=== PATIENT | male | born 1960 | race Caucasian/White ===

== ENCOUNTER 2016-08-16 08:50 | Emergency (ER) | payer OTHER ==
--- NOTE | 2016-08-16 10:28 | EDDOCDS ---
Physician Documentation [facility] Name: Calvin Barone Age: 55 yrs Sex: Male : 1960 Arrival Date: 08/16/2016 Time: 08:50 Bed I4 / M4 Private MD: Disposition: 08/16/16 10:06 Discharged to Home/Self Care. Impression: Acute frontal sinusitis. - Condition is Stable. - Discharge Instructions: Sinus Headache. - Prescriptions for Augmentin 875- 125 mg Oral Tablet - take 1 tablet by ORAL route every 12 hours for 10 days; 20 tablet. - Medication Reconciliation form. - Follow up: Private Physician; When: Call to arrange an appointment; Reason: Wound/Symptom Recheck, Recheck today's complaints, Worsening of conditions, Continuance of care. - Problem is an ongoing problem. - Symptoms are unchanged. - Notes: Please use your nasal spray as well. Historical: - Allergies: no known allergies; - Home Meds: 1. glipizide 10 mg Oral tab once daily 2. lisinopril 10 mg Oral tab once daily 3. metformin 1,000 mg Oral tab 2 times per day - PMHx: Diabetes - NIDDM: controlled; Hypertension; Hypothyroidism; - PSHx: Hernia repair; - Social history: Smoking status: Patient uses tobacco products, light tobacco smoker. No barriers to communication noted, The patient speaks fluent Chinese. - Family history: Not pertinent. - : The pt / caregiver states he / she is not on anticoagulants. Home medication list is obtained from [email or web address] import data. - Exposure Risk Screening:: None identified. Vital Signs: 08/16 09:42 BP 123 / 80; Pulse 83; Resp 20; Temp 98.1; Pulse Ox 98% ; Weight 104.33 kg / 230.01 jlf lbs; Height 5 ft. 11 in. (180.34 cm); Pain 0/10; 09:42 Body Mass Index 32.08 (104.33 kg, 180.34 cm) [facility] MDM: 10:26 Financial registration complete. mm15 Signatures: Nery Simpson RN RN Tiffanie Torres mm15 Ignacio Qiu PA-C PA-C cc10 MTDD
--- NOTE | 2016-08-16 10:28 | EDDOCDS ---
Nurse's Notes [facility] Name: Calvin Barone Age: 55 yrs Sex: Male : 1960 Arrival Date: 08/16/2016 Time: 08:50 Bed I4 / M4 Private MD: Diagnosis: Acute frontal sinusitis Presentation: 08/16 09:58 Presenting complaint: Patient states: Pt presents with c/o sore throat runny nose sinus dls congestion x 4-5 days. Adult Sepsis Screening: The patient does not have new or worsening altered mentation. Patient's respiratory rate is less than 22. Systolic blood pressure is greater than 100. Patient has a qSOFA score of 0- Negative Sepsis Screen. Suicide/Homicide risk assessment- the patient denies having any suicidal and/or homicidal ideations and does not present with any other emotional, behavioral or mental health complaints. Status: Patient is not a direct service provider or dependent. Transition of care: patient was not received from another setting of care. 09:58 Acuity: CYN Level 4 dls 09:58 Method Of Arrival: Walkin/Carried/Asstd dls Triage Assessment: 10:01 General: Appears in no apparent distress, well developed, Behavior is cooperative. dls Pain: Pain currently is 3 out of 10 on a pain scale. HIV screening NA for this visit Offered previously. 10:27 EENT: No deficits noted. dls Historical: - Allergies: no known allergies; - Home Meds: 1. glipizide 10 mg Oral tab once daily 2. lisinopril 10 mg Oral tab once daily 3. metformin 1,000 mg Oral tab 2 times per day - PMHx: Diabetes - NIDDM: controlled; Hypertension; Hypothyroidism; - PSHx: Hernia repair; - Social history: Smoking status: Patient uses tobacco products, light tobacco smoker. No barriers to communication noted, The patient speaks fluent Egyptian. - Family history: Not pertinent. - : The pt / caregiver states he / she is not on anticoagulants. Home medication list is obtained from [employer] import data. - Exposure Risk Screening:: None identified. Screenin:24 Screening information is obtained from the patient. Primary language is Egyptian. Fall dls risk: No risks identified. Assistance ADL's: requires no assistance with activities of daily living. Abuse/DV Screen: The patient / caregiver reports he/she is: not in a situation that causes fear, pain or injury. Nutritional screening: No deficits noted. Advance Directives: Currently, there is no health care proxy. There is no active DNR order. There is no living will. There is no Power of Casino Manager. Advance directive information has not previously been placed in an [facility] medical record. home support is adequate. Assessment: 10:24 General: Appears in no apparent distress, well developed, well nourished, Behavior is dls cooperative. Awake, alert, oriented. Skin warm and dry. Moves all extremities. Bilateral breath sounds clear. Respirations unlabored. Abdomen soft, non-tender. No apparent distress. The patient / caregiver is instructed regarding the plan of care and ED course. Vital Signs: 09:42 BP 123 / 80; Pulse 83; Resp 20; Temp 98.1; Pulse Ox 98% ; Weight 104.33 kg; Height 5 [facility] ft. 11 in. (180.34 cm); Pain 0/10; 09:42 Body Mass Index 32.08 (104.33 kg, 180.34 cm) [facility] ED Course: 08:51 Patient visited by Mynor Antunez. jp5 08:51 Patient moved to Waiting jp5 09:13 Patient moved to D1 kmg1 09:22 Patient moved to I4 / M4 dls 09:41 Patient visited by Huong Haley PCA. jl 09:42 Patient visited by Huong Haley PCA. jl 09:57 Ignacio Qiu [facility]-C [facility] cc10 09:57 Keyana Mauro MD is Attending Physician. cc10 10:00 Triage Initiated dls 10:01 Patient visited by Ignacio Qiu PA-C. cc10 10:01 Patient visited by Ignacio Qiu PA-C. cc10 10:24 Patient has correct armband on for positive identification. Bed in low position. Call dls light in reach. 10:26 No IV's were initiated during this patient's visit. No procedures done that require dls assistance. Order Results: There are currently no results for this order. Outcome: 10:06 Discharge ordered by Provider. cc10 10:24 The following High Risk Discharge criteria are identified: None. Discharged to home dls ambulatory, with significant other. Condition: stable. Discharge instructions given to patient, Instructed on discharge instructions, follow up and referral plans. medication usage, Demonstrated understanding of instructions, medications, Pt was receptive of discharge instructions/ teaching. Prescriptions given X 1. No special radiology studies were completed. 10:26 Discharge Assessment: Patient awake, alert and oriented x 3. No cognitive and/or dls functional deficits noted. Patient verbalized understanding of disposition instructions. patient administered narcotics - no. Property sent home with patient. 10:27 Patient left the ED. dls Signatures: Violeta Del Castillo, RN RN km Nery Simpson RN RN dls Huong Haley, DAYANNA FERRULER Ignacio Rivas, PA-C PA-C cc10 Mynor Antunez jp5 MTDD
--- NOTE | 2016-08-18 11:28 | EDDOCDS ---
Physician Documentation [facility] Name: Calvin Barone Age: 55 yrs Sex: Male : 1960 Arrival Date: 08/16/2016 Time: 08:50 Bed I4 / M4 Private MD: Disposition: 08/16/16 10:06 Discharged to Home/Self Care. Impression: Acute frontal sinusitis. - Condition is Stable. - Discharge Instructions: Sinus Headache. - Prescriptions for Augmentin 875- 125 mg Oral Tablet - take 1 tablet by ORAL route every 12 hours for 10 days; 20 tablet. - Medication Reconciliation form. - Follow up: Private Physician; When: Call to arrange an appointment; Reason: Wound/Symptom Recheck, Recheck today's complaints, Worsening of conditions, Continuance of care. - Problem is an ongoing problem. - Symptoms are unchanged. - Notes: Please use your nasal spray as well. Historical: - Allergies: no known allergies; - Home Meds: 1. glipizide 10 mg Oral tab once daily 2. lisinopril 10 mg Oral tab once daily 3. metformin 1,000 mg Oral tab 2 times per day - PMHx: Diabetes - NIDDM: controlled; Hypertension; Hypothyroidism; - PSHx: Hernia repair; - Social history: Smoking status: Patient uses tobacco products, light tobacco smoker. No barriers to communication noted, The patient speaks fluent Togolese. - Family history: Not pertinent. - : The pt / caregiver states he / she is not on anticoagulants. Home medication list is obtained from [employer] import data. - Exposure Risk Screening:: None identified. Vital Signs: 08/16 09:42 BP 123 / 80; Pulse 83; Resp 20; Temp 98.1; Pulse Ox 98% ; Weight 104.33 kg / 230.01 jlf lbs; Height 5 ft. 11 in. (180.34 cm); Pain 0/10; 09:42 Body Mass Index 32.08 (104.33 kg, 180.34 cm) [facility] MDM: 10:26 Financial registration complete. mm15 10:28 [facility] Payment Agreement was scanned into [employer] and attached to record. mm15 20:15 T-Sheet-- Draft Copy was scanned into [employer] and attached to record. klr Signatures: Nery Simpson RN RN Tiffanie Torres mm15 Ignacio Qiu PA-C PA-C cc10 Rosalie Mixon The chart was reviewed and I authenticate all verbal orders and agree with the evaluation and treatment provided.Attachments: 10:28 [facility] Payment Agreement mm15 20:15 T-Sheet-- Draft Copy klr Chart Complete MTDD
--- NOTE | 2016-08-18 11:28 | EDDOCDS ---
Nurse's Notes [facility] Name: Calvin Barone Age: 55 yrs Sex: Male : 1960 Arrival Date: 08/16/2016 Time: 08:50 Bed I4 / M4 Private MD: Diagnosis: Acute frontal sinusitis Presentation: 08/16 09:58 Presenting complaint: Patient states: Pt presents with c/o sore throat runny nose sinus dls congestion x 4-5 days. Adult Sepsis Screening: The patient does not have new or worsening altered mentation. Patient's respiratory rate is less than 22. Systolic blood pressure is greater than 100. Patient has a qSOFA score of 0- Negative Sepsis Screen. Suicide/Homicide risk assessment- the patient denies having any suicidal and/or homicidal ideations and does not present with any other emotional, behavioral or mental health complaints. Status: Patient is not a termite control servicer or dependent. Transition of care: patient was not received from another setting of care. 09:58 Acuity: CYN Level 4 dls 09:58 Method Of Arrival: Walkin/Carried/Asstd dls Triage Assessment: 10:01 General: Appears in no apparent distress, well developed, Behavior is cooperative. dls Pain: Pain currently is 3 out of 10 on a pain scale. HIV screening NA for this visit Offered previously. 10:27 EENT: No deficits noted. dls Historical: - Allergies: no known allergies; - Home Meds: 1. glipizide 10 mg Oral tab once daily 2. lisinopril 10 mg Oral tab once daily 3. metformin 1,000 mg Oral tab 2 times per day - PMHx: Diabetes - NIDDM: controlled; Hypertension; Hypothyroidism; - PSHx: Hernia repair; - Social history: Smoking status: Patient uses tobacco products, light tobacco smoker. No barriers to communication noted, The patient speaks fluent Spanish. - Family history: Not pertinent. - : The pt / caregiver states he / she is not on anticoagulants. Home medication list is obtained from [employer] import data. - Exposure Risk Screening:: None identified. Screenin:24 Screening information is obtained from the patient. Primary language is Spanish. Fall dls risk: No risks identified. Assistance ADL's: requires no assistance with activities of daily living. Abuse/DV Screen: The patient / caregiver reports he/she is: not in a situation that causes fear, pain or injury. Nutritional screening: No deficits noted. Advance Directives: Currently, there is no health care proxy. There is no active DNR order. There is no living will. There is no Power of Dairy Associate. Advance directive information has not previously been placed in an [facility] medical record. home support is adequate. Assessment: 10:24 General: Appears in no apparent distress, well developed, well nourished, Behavior is dls cooperative. Awake, alert, oriented. Skin warm and dry. Moves all extremities. Bilateral breath sounds clear. Respirations unlabored. Abdomen soft, non-tender. No apparent distress. The patient / caregiver is instructed regarding the plan of care and ED course. Vital Signs: 09:42 BP 123 / 80; Pulse 83; Resp 20; Temp 98.1; Pulse Ox 98% ; Weight 104.33 kg; Height 5 [facility] ft. 11 in. (180.34 cm); Pain 0/10; 09:42 Body Mass Index 32.08 (104.33 kg, 180.34 cm) [facility] ED Course: 08:51 Patient visited by Mynor Antunez. jp5 08:51 Patient moved to Waiting jp5 09:13 Patient moved to D1 kmg1 09:22 Patient moved to I4 / M4 dls 09:41 Patient visited by Huong Haley PCA. jl 09:42 Patient visited by Huong Haley PCA. jlf 09:57 Ignacio [facility]C [facility] cc10 09:57 Keyana Mauro MD is Attending Physician. cc10 10:00 Triage Initiated dls 10:01 Patient visited by Ignacio Qiu PA-C. cc10 10:01 Patient visited by Ignacio Qiu PA-C. cc10 10:24 Patient has correct armband on for positive identification. Bed in low position. Call dls light in reach. 10:26 No IV's were initiated during this patient's visit. No procedures done that require dls assistance. 10:28 [facility] Payment Agreement was scanned into [employer] and attached to record. mm15 20:15 T-Sheet-- Draft Copy was scanned into [employer] and attached to record. klr Order Results: There are currently no results for this order. Outcome: 10:06 Discharge ordered by Provider. cc10 10:24 The following High Risk Discharge criteria are identified: None. Discharged to home dls ambulatory, with significant other. Condition: stable. Discharge instructions given to patient, Instructed on discharge instructions, follow up and referral plans. medication usage, Demonstrated understanding of instructions, medications, Pt was receptive of discharge instructions/ teaching. Prescriptions given X 1. No special radiology studies were completed. 10:26 Discharge Assessment: Patient awake, alert and oriented x 3. No cognitive and/or dls functional deficits noted. Patient verbalized understanding of disposition instructions. patient administered narcotics - no. Property sent home with patient. 10:27 Patient left the ED. dls Signatures: Violeta Del Castillo, RN RN kmg1 Nery Simpson RN RN dls Tiffanie Portillo mm15 Huong Haley, DAYANNA METHANE GAS COLLECTION SYSTEM OPERATOR alejandrof Ignacio Qiu, PA-C PANate cc10 Mynor Antunez jp5 Rosalie Mixon Chart Complete MTDUmer
--- NOTE | 2016-08-18 11:28 | EDDOCDS ---
Physician Documentation [facility] Name: Calvin Barone Age: 55 yrs Sex: Male : 1960 Arrival Date: 08/16/2016 Time: 08:50 Bed I4 / M4 Private MD: Disposition: 08/16/16 10:06 Discharged to Home/Self Care. Impression: Acute frontal sinusitis. - Condition is Stable. - Discharge Instructions: Sinus Headache. - Prescriptions for Augmentin 875- 125 mg Oral Tablet - take 1 tablet by ORAL route every 12 hours for 10 days; 20 tablet. - Medication Reconciliation form. - Follow up: Private Physician; When: Call to arrange an appointment; Reason: Wound/Symptom Recheck, Recheck today's complaints, Worsening of conditions, Continuance of care. - Problem is an ongoing problem. - Symptoms are unchanged. - Notes: Please use your nasal spray as well. Historical: - Allergies: no known allergies; - Home Meds: 1. glipizide 10 mg Oral tab once daily 2. lisinopril 10 mg Oral tab once daily 3. metformin 1,000 mg Oral tab 2 times per day - PMHx: Diabetes - NIDDM: controlled; Hypertension; Hypothyroidism; - PSHx: Hernia repair; - Social history: Smoking status: Patient uses tobacco products, light tobacco smoker. No barriers to communication noted, The patient speaks fluent Peruvian. - Family history: Not pertinent. - : The pt / caregiver states he / she is not on anticoagulants. Home medication list is obtained from [employer] import data. - Exposure Risk Screening:: None identified. Vital Signs: 08/16 09:42 BP 123 / 80; Pulse 83; Resp 20; Temp 98.1; Pulse Ox 98% ; Weight 104.33 kg / 230.01 jlf lbs; Height 5 ft. 11 in. (180.34 cm); Pain 0/10; 09:42 Body Mass Index 32.08 (104.33 kg, 180.34 cm) [facility] MDM: 10:26 Financial registration complete. mm15 10:28 [facility] Payment Agreement was scanned into [employer] and attached to record. mm15 20:15 T-Sheet-- Draft Copy was scanned into [employer] and attached to record. klr Signatures: Nery Simpson RN RN Tiffanie Torres mm15 Ignacio Qiu PA-C PA-C cc10 Rosalie Mixon The chart was reviewed and I authenticate all verbal orders and agree with the evaluation and treatment provided.Attachments: 10:28 [facility] Payment Agreement mm15 20:15 T-Sheet-- Draft Copy klr Chart Complete MTDD
== END 2016-08-16 10:27 | disposition home or self-care (01) ==
LOC: M ED 08:50
DX: J01.90 Acute sinusitis, unspecified (principal); H92.09 Otalgia, unspecified ear; E11.9 Type 2 diabetes mellitus without complications; I10 Essential (primary) hypertension; E03.9 Hypothyroidism, unspecified; F17.210 Nicotine dependence, cigarettes, uncomplicated; Z79.899 Other long term (current) drug therapy; Z79.84 Long term (current) use of oral hypoglycemic drugs

== ENCOUNTER 2016-11-22 06:12 | Emergency (ER) | payer OTHER ==
[~2016-11-22] VITALS: Ht 180.3 cm; Wt 102.5 kg
[2016-11-22] MEDS ORDERED: ZOLO25TA PO (06:35)
[2016-11-22] MEDS ORDERED: METF-415 PO (06:36)
[2016-11-22] MEDS ORDERED: IPRATROPIUM 0.5MG/ALBUTEROL 2.5MG INH SOL UD 3ML (DUONEB)(J7620) NEB ONE (07:15)
[2016-11-22] MEDS ORDERED: predniSONE 20 MG TAB PO ONE ×3 (07:30→07:45)
[2016-11-22 08:24] VITALS: BP 138/78
[2016-11-22] MEDS ORDERED: PRED20TA PO (08:26)
[2016-11-22] MEDS ORDERED: CLAR1TAB2 PO (08:26)
[2016-11-22] MEDS ORDERED: AUGM875T27 PO (08:26)
[2016-11-22] MEDS ORDERED: ALBU17IN INH (08:26)
[2016-11-22] MEDS ORDERED: MUCI600T34 PO (08:26)
[2016-11-22] MEDS ORDERED: AUGMENTIN 875 MG TAB PO ONE (08:30)
--- NOTE | 2016-11-22 10:14 | REP ---
CHEST, TWO VIEWS: HISTORY: Cough. COMPARISON: 07/08/2016 FINDINGS: The superior mediastinal structures are midline. The cardiac silhouette is unremarkable in size, shape and position. The diaphragmatic surfaces of the lungs are regular and the costophrenic angles are clear. The pulmonary [place] are clear. The imaged osseous structures are intact. IMPRESSION: There is no acute cardiopulmonary disease. Signed by John Govea DO 11/22/2016 10:24 A
== END 2016-11-22 08:55 | disposition home or self-care (01) ==
LOC: M ED 07:22
DX: J01.90 Acute sinusitis, unspecified (principal); J20.9 Acute bronchitis, unspecified; E11.9 Type 2 diabetes mellitus without complications; Z79.84 Long term (current) use of oral hypoglycemic drugs; Z79.899 Other long term (current) drug therapy; F17.210 Nicotine dependence, cigarettes, uncomplicated

== ENCOUNTER → 2016-12-30 | Outpatient (REF) | payer OTHER ==
[~2016-12-30] MED LIST: ALBU17IN INH; AUGM875T27 PO; CLAR1TAB2 PO; METF-415 PO; MUCI600T34 PO; PRED20TA PO; ZOLO25TA PO
[2016-12-30 12:14] LABS: ALBUMIN 3.8 GM/DL (3.2-5.2); ALBUMIN/GLOBULIN RATIO 1.41 (1.00-1.93); ALKALINE PHOSPHATASE 60 U/L (45-117); ALT/SGPT 41 U/L (12-78); ANION GAP 6 MEQ/L (8-16); AST/SGOT 14 U/L (15-37); BILIRUBIN,TOTAL 0.7 MG/DL (0.2-1.0); BLOOD UREA NITROGEN 13 MG/DL (7-18); CALCIUM LEVEL 9.2 MG/DL (8.5-10.1); CARBON DIOXIDE LEVEL 28 MEQ/L (21-32); CHLORIDE LEVEL 106 MEQ/L (98-107); CREATININE FOR GFR 0.79 MG/DL (0.70-1.30); GLOMERULAR FILTRATION RATE > 60.0 (>56); GLUCOSE, FASTING 164 MG/DL (70-105); POTASSIUM SERUM 4.6 MEQ/L (3.5-5.1); SODIUM LEVEL 140 MEQ/L (136-145); TOTAL PROTEIN 6.5 GM/DL (6.4-8.2)
== END ==
LOC: M SFHCPLAZ 08:28
PROVIDERS: ATTEND Nurse Practitioner Family
DX: E11.8 Type 2 diabetes mellitus with unspecified complications (principal)

== ENCOUNTER → 2017-01-18 | Outpatient (CLI) | payer OTHER ==
[~2017-01-18] MED LIST changes: -AUGM875T27 PO; +AUGM875T28 PO; +BIAX500T13 PO; +CLAR5TAB7 PO; -MUCI600T34 PO; +MUCI600T37 PO
--- NOTE | 2017-01-18 13:45 | REP ---
Clinical: Follow up parenchymal abnormality. Comparison: 06/26/2016. Findings: The bilateral lung [place] are well-aerated, symmetric, and clear. No consolidation, significant nodule or mass lesion is appreciated. No pleural effusion/reaction or pneumothorax. Tracheobronchial tree is patent. The previously noted 5 mm ill-defined density is less conspicuous on current examination, inseparable from the minor fissure and represents small scar. No obvious adenopathy. Mediastinum demonstrates normal thoracic aorta and heart/pericardium. Surrounding musculoskeletal structures are intact. Impression: Previously identified 5 mm density is less apparent on current examination and likely represent small focal scar. Signed by Luis Newby MD 01/18/2017 01:37 P
== END ==
LOC: M RAD 12:22
PROVIDERS: ATTEND Nurse Practitioner Family
DX: R91.1 Solitary pulmonary nodule (principal)

== ENCOUNTER 2017-03-30 17:29 | Emergency (ER) | payer OTHER ==
[~2017-03-30] VITALS: Ht 180.3 cm; Wt 107.3 kg
[2017-03-30 17:29] VITALS: BP 135/64
[~2017-03-30 17:29] MED LIST changes: -BIAX500T13 PO; -CLAR5TAB7 PO
[2017-03-30] MEDS ORDERED: CLAR5TAB7 PO (20:14)
[2017-03-30] MEDS ORDERED: BIAX500T13 PO (20:14)
[2017-03-30] MEDS ORDERED: PSEUDOEPHEDRINE 30 MG TAB PO ONE (20:15)
[2017-03-30] MEDS ORDERED: ERYTHROMYCIN 250 MG TABLET PO SCH (20:15)
== END 2017-03-30 20:33 | disposition home or self-care (01) ==
LOC: M ED 17:29
DX: J32.9 Chronic sinusitis, unspecified (principal); J45.909 Unspecified asthma, uncomplicated; Z79.899 Other long term (current) drug therapy; F17.210 Nicotine dependence, cigarettes, uncomplicated

== ENCOUNTER → 2017-04-15 | Outpatient (REF) | payer OTHER ==
[~2017-04-15] MED LIST changes: +BIAX500T13 PO; +CLAR5TAB7 PO
[2017-04-15 16:23] LABS: ALBUMIN 3.8 GM/DL (3.2-5.2); ALBUMIN/GLOBULIN RATIO 1.41 (1.00-1.93); ALKALINE PHOSPHATASE 65 U/L (45-117); ALT/SGPT 26 U/L (12-78); ANION GAP 4 MEQ/L (8-16); AST/SGOT 11 U/L (15-37); BILIRUBIN,TOTAL 0.5 MG/DL (0.2-1.0); BLOOD UREA NITROGEN 16 MG/DL (7-18); CALCIUM LEVEL 9.3 MG/DL (8.5-10.1); CARBON DIOXIDE LEVEL 32 MEQ/L (21-32); CHLORIDE LEVEL 104 MEQ/L (98-107); GLOMERULAR FILTRATION RATE > 60.0 (>56); GLUCOSE, FASTING 155 MG/DL (70-105); POTASSIUM SERUM 4.2 MEQ/L (3.5-5.1); SODIUM LEVEL 140 MEQ/L (136-145); TOTAL PROTEIN 6.5 GM/DL (6.4-8.2)
== END ==
LOC: M SFHCPLAZ 13:20
PROVIDERS: ATTEND Nurse Practitioner Family
DX: E11.8 Type 2 diabetes mellitus with unspecified complications (principal)

== ENCOUNTER → 2017-07-15 | Outpatient (REF) | payer OTHER ==
[2017-07-15 11:25] LABS: ESTIMATED AVERAGE GLUCOSE 126 MG/DL (60-110)
[2017-07-15 11:36] LABS: ALBUMIN 4.4 GM/DL (3.2-5.2); ALBUMIN/GLOBULIN RATIO 1.63 (1.00-1.93); ALKALINE PHOSPHATASE 61 U/L (45-117); ALT/SGPT 40 U/L (12-78); ANION GAP 9 MEQ/L (8-16); AST/SGOT 20 U/L (7-37); BILIRUBIN,TOTAL 0.6 MG/DL (0.2-1.0); BLOOD UREA NITROGEN 16 MG/DL (7-18); CALCIUM LEVEL 8.6 MG/DL (8.5-10.1); CARBON DIOXIDE LEVEL 27 MEQ/L (21-32); CHLORIDE LEVEL 105 MEQ/L (98-107); CHOLESTEROL LEVEL 93 MG/DL (<200); CREATININE FOR GFR 0.82 MG/DL (0.70-1.30); GLOMERULAR FILTRATION RATE > 60.0 (>56); GLUCOSE, FASTING 74 MG/DL (70-105); POTASSIUM SERUM 4.6 MEQ/L (3.5-5.1); SODIUM LEVEL 141 MEQ/L (136-145); TOTAL PROTEIN 7.1 GM/DL (6.4-8.2); TRIGLYCERIDES LEVEL 126 MG/DL (<150)
== END ==
LOC: M SFHCPLAZ 09:03
DX: E11.8 Type 2 diabetes mellitus with unspecified complications (principal); E78.2 Mixed hyperlipidemia; Z12.5 Encounter for screening for malignant neoplasm of prostate; E55.9 Vitamin D deficiency, unspecified
CPT/HCPCS: 83036

== ENCOUNTER → 2018-01-11 | Outpatient (CLI) | payer OTHER ==
[2018-01-11 11:23] LABS: ESTIMATED AVERAGE GLUCOSE 128 MG/DL (60-110); HEMOGLOBIN A1c 6.1 %
[2018-01-11 11:30] LABS: ALBUMIN 4.1 GM/DL (3.2-5.2); ALBUMIN/GLOBULIN RATIO 1.32 (1.00-1.93); ALKALINE PHOSPHATASE 66 U/L (45-117); ALT/SGPT 46 U/L (12-78); ANION GAP 9 MEQ/L (8-16); AST/SGOT 27 U/L (7-37); BILIRUBIN,TOTAL 0.7 MG/DL (0.2-1.0); BLOOD UREA NITROGEN 14 MG/DL (7-18); CARBON DIOXIDE LEVEL 28 MEQ/L (21-32); CHLORIDE LEVEL 106 MEQ/L (98-107); CREATININE FOR GFR 0.85 MG/DL (0.70-1.30); GLOMERULAR FILTRATION RATE > 60.0 (>56); GLUCOSE, FASTING 143 MG/DL (70-100); POTASSIUM SERUM 4.8 MEQ/L (3.5-5.1); SODIUM LEVEL 143 MEQ/L (136-145); TOTAL PROTEIN 7.2 GM/DL (6.4-8.2)
[2018-01-11 11:38] LABS: MALB URINE SIEMENS 43.1 MG/L; MAU/CREAT RATIO 26.4 MCG/MG (0.0-30.0)
== END ==
LOC: M LAB 10:40
DX: E11.9 Type 2 diabetes mellitus without complications (principal); E55.9 Vitamin D deficiency, unspecified
CPT/HCPCS: 80053

== ENCOUNTER → 2018-02-17 | Outpatient (CLI) | payer OTHER | LOC: M RAD 12:00 | DX: Z12.2 Encounter for screening for malignant neoplasm of respiratory organs (principal); Z87.891 Personal history of nicotine dependence ==

== ENCOUNTER → 2018-02-25 | Outpatient (CLI) | payer OTHER | LOC: M RAD 12:06 | DX: Z12.2 Encounter for screening for malignant neoplasm of respiratory organs (principal); F17.290 Nicotine dependence, other tobacco product, uncomplicated; R91.1 Solitary pulmonary nodule | CPT/HCPCS: G0297 ==

== ENCOUNTER → 2018-08-29 | Outpatient (REF) | payer OTHER ==
[~2018-08-29] MED LIST changes: -BIAX500T13 PO; +BIAX500T14 PO
[2018-08-29 10:15] LABS: CREATININE, URINE 84.9 MG/DL; MALB URINE SIEMENS 11.2 MG/L; MAU/CREAT RATIO 13.1 MCG/MG (0.0-30.0)
[2018-08-29 10:23] LABS: HEMOGLOBIN A1c 6.5 %
[2018-08-29 10:39] LABS: ALBUMIN 4.2 GM/DL (3.2-5.2); ALT/SGPT 48 U/L (12-78); BILIRUBIN,TOTAL 0.4 MG/DL (0.2-1.0); BLOOD UREA NITROGEN 17 MG/DL (7-18); CALCIUM LEVEL 8.9 MG/DL (8.5-10.1); CARBON DIOXIDE LEVEL 28 MEQ/L (21-32); CHLORIDE LEVEL 107 MEQ/L (98-107); CHOLESTEROL LEVEL 103 MG/DL (<200); CHOLESTEROL RISK RATIO 2.575 (<5); CREATININE FOR GFR 0.79 MG/DL (0.70-1.30); GLOMERULAR FILTRATION RATE > 60.0 (>56); GLUCOSE, FASTING 97 MG/DL (70-100); HDL CHOLESTEROL 40 MG/DL (>40); LDL CHOLESTEROL 37 MG/DL (<100); MAGNESIUM LEVEL 1.9 MG/DL (1.8-2.4); NON-HDL-C 63 MG/DL; POTASSIUM SERUM 4.8 MEQ/L (3.5-5.1); SODIUM LEVEL 140 MEQ/L (136-145); TOTAL PROTEIN 6.6 GM/DL (6.4-8.2); TRIGLYCERIDES LEVEL 132 MG/DL (<150)
== END ==
LOC: M SFHCPLAZ 08:03
PROVIDERS: ATTEND Nurse Practitioner Family
DX: E11.9 Type 2 diabetes mellitus without complications (principal); E78.2 Mixed hyperlipidemia; E83.42 Hypomagnesemia; Z12.5 Encounter for screening for malignant neoplasm of prostate

== ENCOUNTER 2018-12-17 12:14 | Emergency (ER) | payer OTHER ==
[~2018-12-17] VITALS: Ht 180.3 cm; Wt 94.7 kg
[2018-12-17 12:14] VITALS: BP 117/67
[2018-12-17] MEDS ORDERED: ATOR80TA59 (12:22)
[2018-12-17] MEDS ORDERED: FLUTISP (12:22)
[2018-12-17] MEDS ORDERED: LISI-542 PO (12:22)
[2018-12-17] MEDS ORDERED: GLIP10TA6 (12:22)
[2018-12-17] MEDS ORDERED: ALOG25TA (12:22)
[2018-12-17] MEDS ORDERED: AUGM875T28 PO (13:00)
[2018-12-17] MEDS ORDERED: MUCI600T31 PO (13:00)
[2018-12-17] MEDS ORDERED: AUGMENTIN 875 MG TAB PO ONE (13:00)
== END 2018-12-17 13:10 | disposition home or self-care (01) ==
LOC: M ED 12:14
DX: J01.90 Acute sinusitis, unspecified (principal); J30.1 Allergic rhinitis due to pollen; I10 Essential (primary) hypertension; E11.9 Type 2 diabetes mellitus without complications; E78.00 Pure hypercholesterolemia, unspecified; F32.9 Major depressive disorder, single episode, unspecified; F17.200 Nicotine dependence, unspecified, uncomplicated; Z79.899 Other long term (current) drug therapy; Z79.84 Long term (current) use of oral hypoglycemic drugs

== ENCOUNTER → 2019-02-23 | Outpatient (REF) | payer OTHER ==
[~2019-02-23] MED LIST changes: +ALOG25TA; +ATOR80TA59; +FLUTISP; +GLIP10TA6; +LISI-542 PO; +MUCI600T31 PO
[2019-02-23 13:29] LABS: ALBUMIN 3.9 GM/DL (3.2-5.2); ALT/SGPT 50 U/L (12-78); BILIRUBIN,TOTAL 0.3 MG/DL (0.2-1.0); BLOOD UREA NITROGEN 14 MG/DL (7-18); CALCIUM LEVEL 9.3 MG/DL (8.5-10.1); CARBON DIOXIDE LEVEL 31 MEQ/L (21-32); CHLORIDE LEVEL 107 MEQ/L (98-107); CREATININE FOR GFR 0.75 MG/DL (0.70-1.30); GLOMERULAR FILTRATION RATE > 60.0 (>56); GLUCOSE, FASTING 79 MG/DL (70-100); MAGNESIUM LEVEL 1.8 MG/DL (1.8-2.4); POTASSIUM SERUM 4.3 MEQ/L (3.5-5.1); SODIUM LEVEL 142 MEQ/L (136-145); TOTAL PROTEIN 6.6 GM/DL (6.4-8.2)
[2019-02-23 14:12] LABS: HEMOGLOBIN A1c 6.3 %
== END ==
LOC: M SFHCPLAZ 09:10
PROVIDERS: ATTEND Nurse Practitioner Family
DX: E11.9 Type 2 diabetes mellitus without complications (principal); E83.42 Hypomagnesemia

== ENCOUNTER → 2019-03-27 | Outpatient (CLI) | payer OTHER ==
--- NOTE | 2019-03-28 07:36 | REP ---
CT chest without contrast: Low dose screening exam. Nicotine dependence. Comparison CT studies are from February 25, 2018, January 18, 2017, and July 16, 2016. Findings: There is a stable 5 mm perifissural nodule on the right unchanged from June 2016. This is benign. No new pulmonary nodule is appreciated. There is a tiny calcified granuloma in the left lower lobe on page 80 to of 119 in today's study. This is visible in retrospect on all of the prior exams including July 16, 2016. This is also benign. Exam is otherwise unremarkable. Impression: Lung RADS category II benign findings. Repeat screening exam suggested 1 year. Electronically Signed by Franky Garcia MD 03/28/2019 09:07 A
== END ==
LOC: M RAD 13:04
PROVIDERS: ATTEND Nurse Practitioner Family
DX: Z12.2 Encounter for screening for malignant neoplasm of respiratory organs (principal); R91.1 Solitary pulmonary nodule; F17.218 Nicotine dependence, cigarettes, with other nicotine-induced disorders; J84.10 Pulmonary fibrosis, unspecified

== ENCOUNTER → 2019-08-29 | Outpatient (CLI) | payer OTHER ==
[2019-08-29 10:34] LABS: ALBUMIN 4.1 GM/DL (3.2-5.2); ALT/SGPT 43 U/L (12-78); BILIRUBIN,TOTAL 0.6 MG/DL (0.2-1.0); BLOOD UREA NITROGEN 13 MG/DL (7-18); CALCIUM LEVEL 8.8 MG/DL (8.5-10.1); CARBON DIOXIDE LEVEL 27 MEQ/L (21-32); CHLORIDE LEVEL 108 MEQ/L (98-107); CHOLESTEROL LEVEL 83 MG/DL (<200); CHOLESTEROL RISK RATIO 1.804 (<5); GLOMERULAR FILTRATION RATE > 60.0 (>56); GLUCOSE, FASTING 56 MG/DL (70-100); HDL CHOLESTEROL 46 MG/DL (>40); LDL CHOLESTEROL 25 MG/DL (<100); NON-HDL-C 37 MG/DL; POTASSIUM SERUM 4.4 MEQ/L (3.5-5.1); SODIUM LEVEL 141 MEQ/L (136-145); TOTAL PROTEIN 6.7 GM/DL (6.4-8.2); TRIGLYCERIDES LEVEL 61 MG/DL (<150)
[2019-08-29 10:37] LABS: HEMOGLOBIN A1c 5.9 %
[2019-08-29 10:46] LABS: MAU/CREAT RATIO 13.7 MCG/MG (0.0-30.0)
[2019-08-29 11:08] LABS: TOTAL 25(OH) VITAMIN D 40.3 NG/ML (30.0-100.0)
== END ==
LOC: M PLALAB 08:04
PROVIDERS: ATTEND Nurse Practitioner Family
DX: Z12.5 Encounter for screening for malignant neoplasm of prostate (principal); E11.9 Type 2 diabetes mellitus without complications; E78.2 Mixed hyperlipidemia; E55.9 Vitamin D deficiency, unspecified

== ENCOUNTER → 2019-08-30 | Outpatient (REF) | payer OTHER | LOC: M LAB REF 16:19 | PROVIDERS: ATTEND Physician Assistant | DX: R50.9 Fever, unspecified (principal) ==

== ENCOUNTER → 2019-12-06 | Outpatient (REF) | payer OTHER ==
[2019-12-06 10:45] LABS: ALT/SGPT 43 U/L (12-78); BILIRUBIN,TOTAL 0.7 MG/DL (0.2-1.0); BLOOD UREA NITROGEN 14 MG/DL (7-18); CALCIUM LEVEL 9.1 MG/DL (8.5-10.1); CARBON DIOXIDE LEVEL 29 MEQ/L (21-32); CHLORIDE LEVEL 105 MEQ/L (98-107); CREATININE FOR GFR 0.73 MG/DL (0.70-1.30); GLOMERULAR FILTRATION RATE > 60.0 (>56); GLUCOSE, FASTING 110 MG/DL (70-100); POTASSIUM SERUM 4.5 MEQ/L (3.5-5.1); SODIUM LEVEL 139 MEQ/L (136-145)
[2019-12-06 11:42] LABS: HEMOGLOBIN A1c 6.7 %
== END ==
LOC: M SFHCPLAZ 08:43
PROVIDERS: ATTEND Nurse Practitioner Family
DX: E11.9 Type 2 diabetes mellitus without complications (principal)

== ENCOUNTER → 2020-05-13 | Outpatient (CLI) | payer OTHER ==
--- NOTE | 2020-05-13 15:08 | REP ---
INDICATION: PULM NODULE, NICOTINE DEPENDENCE,LUNG CA SCREENING. COMPARISON: Comparison is made with prior CT studies of the chest the most recent of which is from March 27, 2019. The most remote prior chest CT study is dated July 16, 2016.. TECHNIQUE: 3 mm axial lung window slices. FINDINGS: There is a stable benign perifissural nodular opacity along the minor fissure on the right unchanged from the 2016 prior study. In addition, there is a tiny calcified granulomatous nodule in the left lower lobe also unchanged from the 2016 prior exam. No new pulmonary nodule or mass lesion is appreciated. Scan is otherwise unremarkable. IMPRESSION: Lung rads category 1 findings. Repeat screening exam suggested in 1 year. <Electronically signed by Landon Garcia > 05/13/20 [id number]
== END ==
LOC: M RAD 09:43
PROVIDERS: ATTEND Nurse Practitioner Family
DX: R91.1 Solitary pulmonary nodule (principal); F17.218 Nicotine dependence, cigarettes, with other nicotine-induced disorders

== ENCOUNTER → 2020-06-12 | Outpatient (REF) | payer OTHER ==
[2020-06-12 14:27] LABS: HEMOGLOBIN A1c 5.8 %
[2020-06-12 14:37] LABS: ALBUMIN 3.9 GM/DL (3.2-5.2); ALT/SGPT 33 U/L (12-78); BILIRUBIN,TOTAL 0.6 MG/DL (0.2-1.0); BLOOD UREA NITROGEN 15 MG/DL (7-18); CALCIUM LEVEL 9.4 MG/DL (8.5-10.1); CARBON DIOXIDE LEVEL 29 MEQ/L (21-32); CHLORIDE LEVEL 107 MEQ/L (98-107); CHOLESTEROL LEVEL 86 MG/DL (<200); CHOLESTEROL RISK RATIO 1.755 (<5); CREATININE FOR GFR 0.76 MG/DL (0.70-1.30); GLOMERULAR FILTRATION RATE > 60.0 (>56); GLUCOSE, FASTING 71 MG/DL (70-100); HDL CHOLESTEROL 49 MG/DL (>40); LDL CHOLESTEROL 28 MG/DL (<100); NON-HDL-C 37 MG/DL; POTASSIUM SERUM 4.6 MEQ/L (3.5-5.1); SODIUM LEVEL 141 MEQ/L (136-145); TOTAL 25(OH) VITAMIN D 37.8 NG/ML (30.0-100.0); TOTAL PROTEIN 6.8 GM/DL (6.4-8.2); TRIGLYCERIDES LEVEL 47 MG/DL (<150)
[2020-06-12 14:38] LABS: CREATININE, URINE 29.5 MG/DL; MALB URINE SIEMENS < 5.0 MG/L; MAU/CREAT RATIO 16.9 MCG/MG (0.0-30.0)
== END ==
LOC: M PLALAB 08:51
PROVIDERS: ATTEND Nurse Practitioner Family
DX: E11.9 Type 2 diabetes mellitus without complications (principal); E78.2 Mixed hyperlipidemia; E55.9 Vitamin D deficiency, unspecified

== ENCOUNTER → 2021-03-17 | Outpatient (CLI) | payer OTHER ==
[~2021-03-17] MED LIST changes: -LISI-542 PO; +LISI-898 PO
[2021-03-17 11:29] LABS: HEMOGLOBIN A1c 6.4 %
[2021-03-17 11:45] LABS: ALBUMIN 3.8 GM/DL (3.2-5.2); ALT/SGPT 39 U/L (12-78); BILIRUBIN,TOTAL 0.7 MG/DL (0.2-1.0); BLOOD UREA NITROGEN 21 MG/DL (7-18); CALCIUM LEVEL 8.9 MG/DL (8.8-10.2); CARBON DIOXIDE LEVEL 27 MEQ/L (21-32); CHLORIDE LEVEL 106 MEQ/L (98-107); CREATININE FOR GFR 0.68 MG/DL (0.70-1.30); GLOMERULAR FILTRATION RATE > 60.0 (>49); GLUCOSE, FASTING 120 MG/DL (70-100); POTASSIUM SERUM 4.4 MEQ/L (3.5-5.1); SODIUM LEVEL 137 MEQ/L (136-145); TOTAL PROTEIN 6.4 GM/DL (6.4-8.2)
[2021-03-17 11:50] LABS: TOTAL 25(OH) VITAMIN D 34.6 NG/ML (30.0-100.0)
[2021-03-17 12:48] LABS: MALB URINE SIEMENS 39.7 MG/L
== END ==
LOC: M PLALAB 08:34
PROVIDERS: ATTEND Nurse Practitioner Family
DX: Z12.5 Encounter for screening for malignant neoplasm of prostate (principal); E55.9 Vitamin D deficiency, unspecified; E11.9 Type 2 diabetes mellitus without complications

== ENCOUNTER → 2021-06-09 | Outpatient (CLI) | payer OTHER ==
--- NOTE | 2021-06-09 11:41 | REP ---
INDICATION: SMOKER. Lung rads category 2 COMPARISON: Multiple the latest 05/13/2020 also low-dose screening CT of the lungs TECHNIQUE: Axial noncontrast images from the thoracic inlet to the upper abdomen using low-dose lung screening technique (LDCT). As per the protocol only lung window imaging was sent to the read station for interpretation FINDINGS: There are no new abnormal nodules, masses, or opacities. Grossly, the mediastinum and pulmonary joel are stable Grossly, the imaged upper abdomen and imaged osseous structures are stable IMPRESSION: Stable low-dose screening CT examinations of the lungs. Follow-up as per the revised Fleischner society criteria. Lung rads category 2 <Electronically signed by John Govea > 06/09/21 [id number]
== END ==
LOC: M RAD 09:18
PROVIDERS: ATTEND Nurse Practitioner Family
DX: Z12.2 Encounter for screening for malignant neoplasm of respiratory organs (principal); R91.1 Solitary pulmonary nodule; F17.218 Nicotine dependence, cigarettes, with other nicotine-induced disorders

== ENCOUNTER 2021-07-16 13:52 | Emergency (ER) | payer OTHER ==
[~2021-07-16] VITALS: Ht 180.3 cm; Wt 90.9 kg
[2021-07-16 13:53] VITALS: BP 177/84
== END 2021-07-16 15:42 | disposition left against medical advice (07) ==
LOC: M ED 13:52
DX: Z53.29 Procedure and treatment not carried out because of patient's decision for other reasons (principal)

== ENCOUNTER → 2022-03-25 | Outpatient (CLI) | payer OTHER ==
[~2022-03-25] MED LIST changes: -LISI-898 PO; +LISI5TAB11 PO
[2022-03-25 14:09] LABS: BASO % 0.6 % (0.0-1.0); EOS # 0.1 10^3/uL (0.0-0.5); HEMATOCRIT 44.9 % (42.0-52.0); HEMOGLOBIN 15.6 g/dl (13.5-17.5); LYMPH # 2.2 10^3/uL (1.5-5.0); LYMPH % 33.8 % (24.0-44.0); MEAN CORPUSCULAR HEMOGLOBIN 30.8 pg (27.0-33.0); MEAN CORPUSCULAR HGB CONC 34.7 g/dl (32.0-36.5); MEAN CORPUSCULAR VOLUME 88.7 fl (80.0-96.0); MONO # 0.4 10^3/uL (0.0-0.8); MONO % 6.6 % (2.0-8.0); NEUTROPHILS # 3.7 10^3/uL (1.5-8.5); NEUTROPHILS % 56.5 % (36.0-66.0); PLATELET COUNT, AUTOMATED 193 10^3/uL (150-450); RED BLOOD COUNT 5.06 10^6/uL (4.30-6.10); WHITE BLOOD COUNT 6.5 10^3/uL (4.0-10.0)
[2022-03-25 14:25] LABS: ALBUMIN 4.1 GM/DL (3.2-5.2); ALT/SGPT 38 U/L (12-78); BILIRUBIN,TOTAL 0.4 MG/DL (0.2-1.0); BLOOD UREA NITROGEN 14 MG/DL (7-18); CALCIUM LEVEL 9.5 MG/DL (8.8-10.2); CARBON DIOXIDE LEVEL 28 MEQ/L (21-32); CHLORIDE LEVEL 103 MEQ/L (98-107); CHOLESTEROL LEVEL 190 MG/DL (<200); CHOLESTEROL RISK RATIO 4.418 (<5); CREATININE FOR GFR 0.73 MG/DL (0.70-1.30); GLOMERULAR FILTRATION RATE > 60.0 (>49); GLUCOSE, FASTING 83 MG/DL (70-100); HDL CHOLESTEROL 43 MG/DL (>40); LDL CHOLESTEROL 74 MG/DL (<100); NON-HDL-C 147 MG/DL; POTASSIUM SERUM 4.4 MEQ/L (3.5-5.1); SODIUM LEVEL 136 MEQ/L (136-145); TOTAL PROTEIN 6.9 GM/DL (6.4-8.2); TRIGLYCERIDES LEVEL 364 MG/DL (<150)
[2022-03-25 14:57] LABS: PTH INTACT 30.4 PG/ML (18.5-88.0); TOTAL 25(OH) VITAMIN D 51.1 NG/ML (30.0-100.0)
[2022-03-25 15:01] LABS: MALB URINE SIEMENS 72.6 MG/L
== END ==
LOC: M PLALAB 10:07
PROVIDERS: ATTEND Physician Assistant Medical
DX: E11.9 Type 2 diabetes mellitus without complications (principal); E78.2 Mixed hyperlipidemia; E55.9 Vitamin D deficiency, unspecified; J30.9 Allergic rhinitis, unspecified; Z12.5 Encounter for screening for malignant neoplasm of prostate

== ENCOUNTER → 2022-04-08 | Outpatient (CLI) | payer OTHER | LOC: M RAD 14:37 | PROVIDERS: ATTEND Physician Assistant Medical | DX: I73.9 Peripheral vascular disease, unspecified (principal); E11.51 Type 2 diabetes mellitus with diabetic peripheral angiopathy without gangrene; F17.218 Nicotine dependence, cigarettes, with other nicotine-induced disorders ==

== ENCOUNTER → 2022-06-29 | Outpatient (CLI) | payer OTHER | LOC: M RAD 07:54 | PROVIDERS: ATTEND Physician Assistant Medical | DX: R91.1 Solitary pulmonary nodule (principal) ==

== ENCOUNTER → 2022-11-09 | Outpatient (REF) | payer OTHER ==
[~2022-11-09] MED LIST changes: +FLUT50SP17; -FLUTISP
== END ==
LOC: M SFHCPLAZ 11:29
PROVIDERS: ATTEND Physician Assistant Medical
DX: E11.9 Type 2 diabetes mellitus without complications (principal); E78.2 Mixed hyperlipidemia; J30.9 Allergic rhinitis, unspecified; J01.11 Acute recurrent frontal sinusitis; Z53.9 Procedure and treatment not carried out, unspecified reason

== ENCOUNTER → 2023-05-17 | Outpatient (CLI) | payer OTHER ==
[2023-05-17 10:55] LABS: BASO % 0.7 % (0.0-1.0); EOS # 0.2 10^3/uL (0.0-0.5); HEMATOCRIT 45.3 % (42.0-52.0); HEMOGLOBIN 16.4 g/dl (13.5-17.5); LYMPH # 1.7 10^3/uL (1.5-5.0); LYMPH % 29.9 % (24.0-44.0); MEAN CORPUSCULAR HEMOGLOBIN 31.1 pg (27.0-33.0); MEAN CORPUSCULAR HGB CONC 36.2 g/dl (32.0-36.5); MONO # 0.4 10^3/uL (0.0-0.8); MONO % 7.7 % (2.0-8.0); NEUTROPHILS # 3.2 10^3/uL (1.5-8.5); NEUTROPHILS % 58.2 % (36.0-66.0); PLATELET COUNT, AUTOMATED 214 10^3/uL (150-450); RED BLOOD COUNT 5.27 10^6/uL (4.30-6.10); WHITE BLOOD COUNT 5.6 10^3/uL (4.0-10.0)
[2023-05-17 11:02] LABS: ALBUMIN 3.9 G/DL (3.2-5.2); ALKALINE PHOSPHATASE 96 U/L (46-116); ALT/SGPT 33 U/L (7.0-40); AST/SGOT 19 U/L (<34); BILIRUBIN,TOTAL 1.2 MG/DL (0.3-1.2); BLOOD UREA NITROGEN 15 MG/DL (9-23); CALCIUM LEVEL 9.4 MG/DL (8.3-10.6); CARBON DIOXIDE LEVEL 28 MMOL/L (20-31); CHLORIDE LEVEL 99 MMOL/L (98-107); CREATININE FOR GFR 0.68 MG/DL (0.70-1.30); GLOMERULAR FILTRATION RATE > 60.0 (>49); GLUCOSE, FASTING 278 MG/DL (74-106); POTASSIUM SERUM 4.7 MMOL/L (3.5-5.1); SODIUM LEVEL 136 MMOL/L (136-145); TOTAL PROTEIN 6.5 G/DL (5.7-8.2)
[2023-05-17 11:55] LABS: HEMOGLOBIN A1c 10.6 % (4.0-6.0)
== END ==
LOC: M PLALAB 08:15
PROVIDERS: ATTEND Physician Assistant Medical
DX: E11.9 Type 2 diabetes mellitus without complications (principal); E78.2 Mixed hyperlipidemia; J01.11 Acute recurrent frontal sinusitis; J30.9 Allergic rhinitis, unspecified

== ENCOUNTER → 2023-08-06 | Outpatient (CLI) | payer OTHER ==
[~2023-08-06] MED LIST changes: -FLUT50SP17; +FLUTISP
== END ==
LOC: M RAD 09:23
PROVIDERS: ATTEND Physician Assistant Medical
DX: Z12.2 Encounter for screening for malignant neoplasm of respiratory organs (principal); R91.1 Solitary pulmonary nodule; F17.210 Nicotine dependence, cigarettes, uncomplicated

== ENCOUNTER → 2023-08-16 | Outpatient (CLI) | payer OTHER | LOC: M RAD 07:54 | PROVIDERS: ATTEND Physician Assistant Medical | DX: Z13.6 Encounter for screening for cardiovascular disorders (principal) ==

== ENCOUNTER → 2024-06-26 | Outpatient (CLI) | payer OTHER ==
[~2024-06-26] MED LIST changes: +GLIP10TA15; -GLIP10TA6
[2024-06-26 15:37] LABS: BASO % 0.5 % (0.0-1.0); EOS # 0.2 10^3/uL (0.0-0.5); EOS % 2.5 % (0.0-3.0); HEMATOCRIT 43.8 % (42.0-52.0); HEMOGLOBIN 15.7 g/dl (13.5-17.5); LYMPH # 1.9 10^3/uL (1.5-5.0); LYMPH % 29.7 % (24.0-44.0); MEAN CORPUSCULAR HEMOGLOBIN 31.3 pg (27.0-33.0); MEAN CORPUSCULAR HGB CONC 35.8 g/dl (32.0-36.5); MEAN CORPUSCULAR VOLUME 87.3 fl (80.0-96.0); MONO # 0.5 10^3/uL (0.0-0.8); MONO % 8.1 % (2.0-8.0); NEUTROPHILS # 3.7 10^3/uL (1.5-8.5); NEUTROPHILS % 58.9 % (36.0-66.0); PLATELET COUNT, AUTOMATED 229 10^3/uL (150-450); RED BLOOD COUNT 5.02 10^6/uL (4.30-6.10); WHITE BLOOD COUNT 6.3 10^3/uL (4.0-10.0)
[2024-06-26 16:06] LABS: ALBUMIN 3.6 G/DL (3.2-5.2); ALKALINE PHOSPHATASE 84 U/L (40-129); ALT/SGPT 26 U/L (7.0-40); AST/SGOT 11 U/L (<34); BILIRUBIN,TOTAL 0.5 MG/DL (0.3-1.2); BLOOD UREA NITROGEN 14 MG/DL (9-23); CALCIUM LEVEL 9.6 MG/DL (8.3-10.6); CARBON DIOXIDE LEVEL 27 MMOL/L (20-31); CHLORIDE LEVEL 100 MMOL/L (98-107); CHOLESTEROL LEVEL 107 MG/DL (<200); CHOLESTEROL RISK RATIO 2.39 (<5); CREATININE FOR GFR 0.63 MG/DL (0.70-1.30); GLOMERULAR FILTRATION RATE > 60.0 (>49); GLUCOSE, FASTING 276 MG/DL (74-106); HDL CHOLESTEROL 44.6 MG/DL (>40); LDL CHOLESTEROL 32.6 MG/DL (<100); NON-HDL-C 62.4 MG/DL; POTASSIUM SERUM 4.4 MMOL/L (3.5-5.1); PTH INTACT 30.5 PG/ML (18.5-88.0); SODIUM LEVEL 135 MMOL/L (136-145); TOTAL PROTEIN 6.1 G/DL (5.7-8.2); TRIGLYCERIDES LEVEL 149 MG/DL (<150)
[2024-06-26 16:07] LABS: TOTAL 25(OH) VITAMIN D 28.9 NG/ML (20.0-100.0)
== END ==
LOC: M PLALAB 13:53
PROVIDERS: ATTEND Physician Assistant Medical
DX: J30.9 Allergic rhinitis, unspecified (principal); E55.9 Vitamin D deficiency, unspecified; E78.2 Mixed hyperlipidemia; E11.9 Type 2 diabetes mellitus without complications; Z12.5 Encounter for screening for malignant neoplasm of prostate

== ENCOUNTER → 2024-09-01 | Outpatient (CLI) | payer OTHER | LOC: M RAD 09:40 | PROVIDERS: ATTEND Physician Assistant Medical | DX: F17.218 Nicotine dependence, cigarettes, with other nicotine-induced disorders (principal) ==

== ENCOUNTER → 2025-05-15 | Outpatient (CLI) | payer OTHER ==
[2025-05-15 11:14] LABS: BASO # 0.0 10^3/uL (0.0-0.2); BASO % 0.7 % (0.0-1.0); EOS # 0.1 10^3/uL (0.0-0.5); EOS % 2.1 % (0.0-3.0); LYMPH # 1.6 10^3/uL (1.5-5.0); LYMPH % 29.0 % (24.0-44.0); MONO # 0.4 10^3/uL (0.0-0.8); MONO % 6.9 % (2.0-8.0); NEUTROPHILS # 3.4 10^3/uL (1.5-8.5); NEUTROPHILS % 60.9 % (36.0-66.0); PLATELET COUNT, AUTOMATED 215 10^3/uL (150-450)
[2025-05-15 11:19] LABS: ALT/SGPT 31 U/L (7.0-40); AST/SGOT 20 U/L (<34); CALCIUM LEVEL 10.8 MG/DL (8.3-10.6); CARBON DIOXIDE LEVEL 28 MMOL/L (20-31); CHLORIDE LEVEL 104 MMOL/L (98-107); CREATININE FOR GFR 0.91 MG/DL (0.70-1.30); GLOMERULAR FILTRATION RATE > 90.0 (>49); POTASSIUM SERUM 5.0 MMOL/L (3.5-5.1); SODIUM LEVEL 143 MMOL/L (136-145)
[2025-05-15 11:28] LABS: ESTIMATED AVERAGE GLUCOSE 246.0 MG/DL (60-110)
== END ==
LOC: M PLALAB 07:46
PROVIDERS: ATTEND Physician Assistant Medical
DX: E78.2 Mixed hyperlipidemia (principal); E11.9 Type 2 diabetes mellitus without complications; J30.9 Allergic rhinitis, unspecified